=== PATIENT | female | born 1935 | race Caucasian/White ===

== ENCOUNTER 2016-09-26 20:57 | Emergency (ER) | payer OTHER ==
[~2016-09-26] VITALS: Ht 162.6 cm; Wt 63.8 kg
[~2016-09-26 20:57] MED LIST: AMLO-114 PO; ASPEC325 PO; CLB200 PO; CZR50 PO; LRT5 PO; MULT-506 PO; OXYSR10 PO; SIMV20TA2 PO
[2016-09-26 21:06] VITALS: TEMP 36.4; Ht 162.6 cm; Wt 63.8 kg
[2016-09-26] MEDS ORDERED: SODIUM CHLORIDE 0.9% 500ML 500 ML IV STA (22:00)
--- NOTE | 2016-09-26 22:12 | EMERGENCY ROOM VISIT NOTE ---
History Report prepared by Judy: Suma Escobar Under the Supervision of: Dr. Darrell Hall M.D. First contact with patient: 21:51 Chief Complaint: FALL Stated Complaint: FALL, SORE BACK, PT WANTS EVAL. 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 Per , the patient was walking to the bathroom when she had an unwitnessed fall. She does not think that she hit her head or lost consciousness. Her states that he heard a loud noise and found the patient on the ground. She was unable to get up on her own and every time he tried to lift her she would complain of lower back pain. The patient states that her back pain is chronic. 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 The patient was brought to the ED by ambulance. She is confused. Family has expressed concern that she may have Alzheimer's or dementia. Her states that she is good in the mornings, but as the days go on she becomes more confused throughout the day. She has not seen her PCP in 3 years. The patient denies abdominal pain. She does not take any blood thinners. The patient's left leg is swollen. Her states that this is chronic and it is not more swollen than usual. Source of History: patient, spouse/significant other Onset: LIFE SCIENCE RESEARCH ASSISTANT Position: other (global) Timing: other (episode) Modifying Factors (Worsening): movement Modifying Factors (Relieving): ibuprofen Associated Symptoms: + back pain, No LOC, No abdominal pain Review of Systems See HPI for pertinent positives & negatives. A total of 10 systems reviewed and were otherwise negative. Past Medical & Surgical Medical Problems: (1) Localized, primary osteoarthritis of the lower leg Family History Non-pertinent due to advanced age. Social History Smoking Status: Never Smoker Marital Status: Housing Status: lives with significant other Occupation Status: unemployed Current/Historical Medications Scheduled Sulfa/Trimethoprim (Bactrim Ds 800MG/160MG), 1 TAB PO BID Allergies Coded Allergies: Penicillins (Verified Allergy, UNKNOWN, 06/19/11) Physical Exam Vital Signs Date Time Temp Pulse Resp B/P Pulse Ox O2 Delivery O2 Flow Rate FiO2 09/26/16 22:52 97 Room Air 09/26/16 22:52 97 Room Air 09/26/16 22:43 102 18 197/106 97 Room Air 113 182/101 85 124/117 09/26/16 21:11 73 09/26/16 21:06 36.4 65 20 168/78 94 Room Air Physical Exam GENERAL: Patient is a healthy-appearing well-nourished 81 year old female. HEAD: Normocephalic atraumatic EYES: Ocular movements intact pupils equal and react to light OROPHARYNX mucous membranes are moist no exudates present no erythema or edema present NECK: Supple no nuchal rigidity CHEST: Good equal expansion LUNGS: Clear and equal to auscultation CARDIAC: Normal S1 and S2 ABDOMEN: Soft nontender no guarding BACK: She is tender to the L1/L2 area. EXTREMITIES: No pain upon palpation normal muscle strength in all groups no clubbing or cyanosis. Left leg appears significantly more swollen than the right. NEURO: Patient is following commands, not oriented to time. Cranial Nerves 2-12 grossly intact Medical Decision & Procedures ER Provider Diagnostic Interpretation: Radiology results as stated below per my review and radiologist interpretation: CHEST ONE VIEW PORTABLE CLINICAL HISTORY: Pt c/o AMS dyspnea COMPARISON STUDY: 05/20/2011 FINDINGS: Cardiomegaly. Prominent hilar shadows bilaterally. Pulmonary edematous change IMPRESSION: Pulmonary edema. Electronically signed by: [place] M.D. 09/26/2016 10:34 PM Dictated Date/Time: 09/26/2016 10:34 PM VENOUS LEFT LOWER EXTREMITY: No DVT. Cannot exclude superficial venous thrombosis of the lesser saphenous vein, uncertain chronicity. Radiologist: Anastasiia Pearson MD CT HEAD: No intracranial hemorrhage or skull fracture. Extracranial soft tissue swelling. Atrophy with small vessel disease. CT L SPINE: Subtle fracture of the right sacrum. Degenerative changes and levoscoliosis. Old transverse process fracture. Hiatal hernia. Radiologist: Anastasiia Roe MD Laboratory Results 09/26/16 22:23 Red Blood Count 4.23, Mean Corpuscular Volume 95.0, Mean Corpuscular Hemoglobin 31.7, Mean Corpuscular Hemoglobin Concent 33.3, Mean Platelet Volume 11.8, Neutrophils (%) (Auto) 72.8, Lymphocytes (%) (Auto) 16.9, Monocytes (%) (Auto) 7.1, Eosinophils (%) (Auto) 2.3, Basophils (%) (Auto) 0.7, Neutrophils # (Auto) 4.10, Lymphocytes # (Auto) 0.95, Monocytes # (Auto) 0.40, Eosinophils # (Auto) 0.13, Basophils # (Auto) 0.04 09/26/16 22:23 Test 09/26/16 21:43 09/26/16 22:22 09/26/16 22:23 Urine Color YELLOW Urine Appearance CLEAR (CLEAR) Urine pH 6.5 (4.5-7.5) Urine Specific [place] 1.010 (1.000-1.030) Urine Protein NEG (NEG) Urine Glucose (UA) NEG (NEG) Urine Ketones NEG (NEG) Urine Occult Blood NEG (NEG) Urine Nitrite POS (NEG) Urine Bilirubin NEG (NEG) Urine Urobilinogen NEG (NEG) Urine Leukocyte Esterase NEG (NEG) Urine WBC (Auto) 1-5 /hpf (0-5) Urine RBC (Auto) 0-4 /hpf (0-4) Urine Hyaline Casts (Auto) 0 /lpf (0-5) Urine Epithelial Cells (Auto) 20-30 /lpf (0-5) Urine Bacteria (Auto) 4+ (NEG) Bedside Glucose 134 mg/dl (70-90) White Blood Count 5.63 K/uL (4.8-10.8) Red Blood Count 4.23 M/uL (4.2-5.4) Hemoglobin 13.4 g/dL (12.0-16.0) Hematocrit 40.2 % (37-47) Mean Corpuscular Volume 95.0 fL (80-100) Mean Corpuscular Hemoglobin 31.7 pg (25-34) Mean Corpuscular Hemoglobin Concent 33.3 g/dl (32-36) Platelet Count 237 K/uL (130-400) Mean Platelet Volume 11.8 fL (7.4-10.4) Neutrophils (%) (Auto) 72.8 % Lymphocytes (%) (Auto) 16.9 % Monocytes (%) (Auto) 7.1 % Eosinophils (%) (Auto) 2.3 % Basophils (%) (Auto) 0.7 % Neutrophils # (Auto) 4.10 K/uL (1.4-6.5) Lymphocytes # (Auto) 0.95 K/uL (1.2-3.4) Monocytes # (Auto) 0.40 K/uL (0.11-0.59) Eosinophils # (Auto) 0.13 K/uL (0-0.5) Basophils # (Auto) 0.04 K/uL (0-0.2) RDW Standard Deviation 50.7 fL (36.4-46.3) RDW Coefficient of Variation 14.6 % (11.5-14.5) Immature Granulocyte % (Auto) 0.2 % Immature Granulocyte # (Auto) 0.01 K/uL (0.00-0.02) Anion Gap 12.0 mmol/L (3-11) Est Creatinine Clear Calc Drug Dose 59.5 ml/min Estimated GFR () 96.8 Estimated GFR (Non- 83.5 BUN/Creatinine Ratio 24.9 (10-20) Calcium Level 8.6 mg/dl (8.5-10.1) Total Bilirubin 0.4 mg/dl (0.2-1) Direct Bilirubin 0.1 mg/dl (0-0.2) Aspartate Amino Transf (AST/SGOT) 33 U/L (15-37) Alanine Aminotransferase (ALT/SGPT) 19 U/L (12-78) Alkaline Phosphatase 97 U/L (45-117) Total Creatine Kinase 114 U/L (26-192) Creatine Kinase MB 3.4 ng/ml (0.5-3.6) Creatine Kinase MB Ratio 3.0 (0-3.0) Troponin I 0.021 ng/ml (0-0.045) Total Protein 7.4 gm/dl (6.4-8.2) Albumin 3.7 gm/dl (3.4-5.0) Thyroid Stimulating Hormone (TSH) 1.580 uIu/ml (0.300-4.500) Labs reviewed by ED physician. Medications Administered Medications (Trade) Dose Ordered Sig/Blayne Route Start Time Stop Time Status Last Admin Dose Admin Sodium Chloride (Nss 500ml) 500 ml @ 999 mls/hr Q31M STAT IV 09/26/16 22:00 09/26/16 22:30 DC 09/26/16 22:53 999 MLS/HR Ceftriaxone Sodium (Rocephin Inj) 1 gm NOW STAT IV 09/27/16 00:12 09/27/16 00:13 DC 09/27/16 00:17 1 GM ECG Indication: other Rate (beats per minute): 70 Rhythm: normal sinus Findings: no acute ischemic change, no ectopy ED Course 2150: Past medical records reviewed. The patient was evaluated in room C6. A complete history and physical examination was performed. 2200: NSS 500 ml @ 999 mls/hr IV 0012: Rocephin 1 gm IV 0013: I reassessed the patient at this time. She is resting comfortably. I discussed the results and treatment plan with the patient and her . I answered all pertaining questions that they had. They expressed understanding and verbalized agreement. I offered the patient admission to the hospital but she is refusing. She does not wish to remain in the hospital and wants to go home. I discussed the risks and benefits associated with leaving. The patient will be discharged home. Medical Decision Differential diagnosis: Etiologies such as metabolic, infection, hypo/hyperglycemia, electrolyte abnormalities, cardiac sources, intracerebral event, toxicologic, neurologic, as well as others were entertained. This is an 81-year-old female who presents emergency department complaining of back pain after a fall at home. In addition the patient's daughter also like the patient placed. The patient arrives here in emergency department with her . She agreed to sit for a physical exam as well as laboratory and imaging studies. Her CAT scan is concerning for sacral fracture however the patient has no pain or tenderness at this point. She was also ambulated by nursing staff in the emergency department and did not appear to have any issues. In addition the patient also appears to have urinary tract infection. For this reason the patient was given normal saline bolus and started on Rocephin and will be placed on Bactrim. I strongly recommended to the patient and her that she be admitted to the hospital however the patient is adamantly refusing and is actively trying to walk out of the room as well as emergency department on exam. In addition the patient's also will not allow her to stay. Case management has been in contact with this patient's daughter over placement for the patient. Unfortunately I cannot force the patient to stay and be placed. The patient has demonstrated no significant defect in the decision-making capacity to make choices. The encounter had a good level of communication with language the patient can easily understand. I feel trust was present and conveyed that our action/intentions were the best interest of the patient. The patient was given all relevant information and reiterated the explained risks and benefits. The patient explained the reasoning for refusing treatment clearly. The patient possesses and expresses a set of values and goals, the ability to communicate and understand, and an ability to reason and deliberate. Despite acting emphatically, attentively and with the utmost patient's the patient declined further treatment. I offered options, negotiated, and explored every reasonable choice. I must respect the patient's autonomy and that they feel that their choices are best for them despite the associated risks of leaving without completing the evaluation. The patient was informed about the findings as listed above. All questions were answered and he was pleased with the treatment. Return instructions were outlined and the patient was discharged in stable condition. Impression Primary Impression: UTI (urinary tract infection) Additional Impression: Fall Scribe Attestation The scribe's documentation has been prepared under my direction and personally reviewed by me in its entirety. I confirm that the note above accurately reflects all work, treatment, procedures, and medical decision making performed by me. Departure Information Dispostion Home / Self-Care Prescriptions Sulfa/Trimethoprim (Bactrim Ds 800MG/160MG) Tab 1 TAB PO BID for 7 Days, #14 TAB Prov: Darrell Hall MD 09/27/16 Referrals No Doctor, Eldon Schultz M.D. Forms HOME CARE DOCUMENTATION FORM, IMPORTANT VISIT INFORMATION Patient Instructions ED Fall Dizziness Weakn Balance, ED UTI Cystitis Female, [facility] Additional Instructions Culture results are usually available in approx 48 hours You have been examined and treated today on an emergency basis only. This is not a substitute for, or an effort to provide, complete comprehensive medical care. It is impossible to recognize and treat all injuries or illnesses in a single emergency department visit. It is therefore important that you follow up closely with Dr Thurston. Call as soon as possible for an appointment. Thank you for your time and consideration. I look forward to speaking with you again soon. Please don't hesitate to call us if you have any questions. Problem Qualifiers Primary Impression: UTI (urinary tract infection) Urinary tract infection type: acute cystitis Hematuria presence: with hematuria Qualified Codes: N30.01 - Acute cystitis with hematuria Additional Impression: Fall Encounter type: initial encounter Qualified Codes: W19.XXXA - Unspecified fall, initial encounter
--- NOTE | 2016-09-26 22:35 | DIAGNOSTIC IMAGING REPORT ---
CHEST ONE VIEW PORTABLE CLINICAL HISTORY: Pt c/o AMS dyspnea COMPARISON STUDY: 05/20/2011 FINDINGS: Cardiomegaly. Prominent hilar shadows bilaterally. Pulmonary edematous change IMPRESSION: Pulmonary edema. Electronically signed by: [place] M.D. 09/26/2016 10:34 PM Dictated Date/Time: 09/26/2016 10:34 PM
[2016-09-26 22:52] VITALS: O2SAT 97
[2016-09-26 22:57] LABS: BASO % 0.7 %; BASO ABS # 0.04 K/uL (0-0.2); COMPLETE YES; EOS % 2.3 %; HEMATOCRIT 40.2 % (37-47); IG% 0.2 %; LYMPH % 16.9 %; LYMPH ABS # 0.95 K/uL (1.2-3.4); MEAN CORPUSCULAR HEMOGLOBIN 31.7 pg (25-34); MEAN CORPUSCULAR HGB CONC 33.3 g/dl (32-36); MEAN PLATELET VOLUME 11.8 fL (7.4-10.4); MONO % 7.1 %; NEUT % 72.8 %; PLATELET COUNT 237 K/uL (130-400); RED BLOOD COUNT 4.23 M/uL (4.2-5.4); WHITE BLOOD COUNT 5.63 K/uL (4.8-10.8)
[2016-09-26 23:00] LABS: BUN/CREATININE RATIO 24.9 (10-20); CALCIUM 8.6 mg/dl (8.5-10.1); CREATININE 0.63 mg/dl (0.60-1.20); POTASSIUM 4.1 mmol/L (3.5-5.1)
[2016-09-26 23:11] LABS: THYROID STIMULATING HORMONE 1.58 uIu/ml (0.300-4.500)
[2016-09-26 23:58] LABS: URINE APPEARANCE CLEAR (CLEAR); URINE BILIRUBIN NEG (NEG); URINE COLOR YELLOW; URINE EPITHELIAL CELL AUTO 20-30 /lpf (0-5); URINE NITRITE POS (NEG); URINE PH 6.5 (4.5-7.5); UROBILINOGEN NEG (NEG)
[2016-09-27 00:11] LABS: MANUAL MICROSCOPIC REQUIRED? NO; REVIEW REQ? NO
[2016-09-27] MEDS ORDERED: CEFTRIAXONE SOD INJ 1 GM ADDVIAL IV STA (00:12)
[2016-09-27] MEDS ORDERED: SULF800T23 PO (00:17)
[2016-09-27 00:43] VITALS: BP 180/96; PULSE 61; O2SAT 95
--- NOTE | 2016-09-27 07:09 | DIAGNOSTIC IMAGING REPORT ---
CT LUMBAR SPINE WITHOUT CT DOSE: 1041.17 mGy.cm CLINICAL HISTORY: Low back pain status post trauma TECHNIQUE: Helical images were acquired in transverse plane. Reformatted sagittal and coronal images were reviewed. CONTRAST: No contrast was administered COMPARISON STUDY: None. FINDINGS: L1-2 level: There is gas within the disc. No focal herniations are visualized. L2-3 level: There is L2-3 fusion. No fractures are visualized. No herniations are evident. There is minimal triangular spinal canal narrowing L3-4 level: There is a circumferential disc bulge. There is mild to moderate spinal canal narrowing. L4-5 level: There is a circumferential disc bulge. There is minimal spinal canal narrowing. L5-S1 level: There is no evidence of significant disc bulge or focal herniation. There is no evidence of spinal or foraminal stenosis. There is a moderate levoscoliosis. No acute lumbar fractures or traumatic subluxations are visualized. There is equivocal nondisplaced right sacral fracture. IMPRESSION: Scoliosis and multilevel degenerative change. No lumbar vertebral body fractures or traumatic subluxations are visualized. There is an equivocal nondisplaced right sacral fracture. Electronically signed by: Gerardo Echeverria M.D. 09/27/2016 7:07 AM Dictated Date/Time: 09/27/2016 6:57 AM
--- NOTE | 2016-09-27 07:18 | DIAGNOSTIC IMAGING REPORT ---
HEAD CT NONCONTRAST CT DOSE: 614.27 mGy.cm HISTORY: Altered mental status. TECHNIQUE: Multiaxial CT images of the head were performed without the use of intravenous contrast. Automated exposure control was utilized for this study. Comparison: None. Findings: The paranasal sinuses and mastoid air cells are clear. The calvarium and skull base are intact. There is no mass, hematoma, midline shift, acute infarct. White matter hypodensity is nonspecific but suggestive of microvascular ischemic change. The ventricles and sulci demonstrate mild age-related involutional changes. Right scalp swelling. Impression: No acute intracranial abnormality. Atrophy and microvascular ischemic changes. Right-sided scalp swelling. Electronically signed by: Shekhar Sesay M.D. 09/27/2016 7:17 AM Dictated Date/Time: 09/27/2016 7:15 AM
--- NOTE | 2016-09-27 07:22 | DIAGNOSTIC IMAGING REPORT ---
LEFT LOWER EXTREMITY VENOUS DOPPLER HISTORY: Left leg swelling. COMPARISON STUDY: None. FINDINGS: There is normal compressibility, flow, and augmentation within the left lower extremity deep venous system. There is thrombus within the lesser saphenous vein within the proximal left calf/popliteal fossa. IMPRESSION: No DVT within the left lower extremity. Thrombus within the lesser saphenous vein which may be chronic. Electronically signed by: Shekhar Sesay M.D. 09/27/2016 7:21 AM Dictated Date/Time: 09/27/2016 7:20 AM
== END 2016-09-27 00:43 | disposition home or self-care (01) ==
LOC: EDBD 20:57 → C.EDC 20:57
DX: N39.0 Urinary tract infection, site not specified (principal); W19.XXXA Unspecified fall, initial encounter; G89.29 Other chronic pain; M54.5 Low back pain

== ENCOUNTER 2016-10-26 20:35 | Emergency (ER) | payer OTHER ==
[~2016-10-26] VITALS: Ht 160 cm; Wt 65.6 kg
[2016-10-26 20:45] VITALS: TEMP 36.4; Ht 160 cm; Wt 65.6 kg
[2016-10-26] MEDS ORDERED: SODIUM CHLORIDE 0.9% 1000ML 1,000 ML IV STA (21:48)
[2016-10-26] MEDS ORDERED: LORAZEPAM 2 MG/ML 1 ML VIAL IV STA (21:48)
[2016-10-26] MEDS ORDERED: HALOPERIDOL LACTATE 5 MG/ML 1 ML VIAL IV STA (21:55)
--- NOTE | 2016-10-26 21:57 | EMERGENCY ROOM VISIT NOTE ---
History Report prepared by Judy: Suma Escobar Under the Supervision of: Dr. Estela Melendez M.D. First contact with patient: 21:14 Chief Complaint: ALTERED MENTAL STATUS Stated Complaint: altered mental status, Nursing Triage Summary: called EMS because when he got home from dinner, patient was found laying on ground. Pt doesn't remember falling. reports patient hit head and is not acting herself. Pt alert and oriented to person, place, and time. Pt denies pain anywhere. Pt repetitive. Pt reports "I am just upset because my dog is having heart surgery today." Pt has hard time answering questions. NIH 0 reports patient drank 1/2 glass of wine which is normal. 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 The patient's returned home from dinner this evening and found the patient laying on the ground. The patient does not remember falling. She denies any injury and she denies any pain at this time. Per daughter, the patient has been confused for a long time and they are trying to move her closer to them to move her into an assisted living home. She states that this evening the patient drank all of the white wine and was getting the red wine when her came home from dinner. Her states that they typically have 1 glass of wine at dinner. The patient states that she had 1 small glass of wine tonight. Her called EMS because she has not been acting like herself. The patient thinks that her dog is having heart surgery today, but her states this is not true and the dog is not getting surgery. She was brought to the ED by ambulance. The history is limited secondary to AMS. states that the patient has not been to a doctor in 3 years. Source of History: patient, family, spouse/significant other, nursing staff History Limited By: AMS Onset: CHEMICAL PACKAGER Position: other (global) Quality: other (AMS) Timing: constant Note: Pt denies any injury or pain. Review of Systems See HPI for pertinent positives & negatives. A total of 10 systems reviewed and were otherwise negative. Past Medical & Surgical Medical Problems: (1) Localized, primary osteoarthritis of the lower leg (2) UTI (urinary tract infection) Family History Non-pertinent due to advanced age. Social History Smoking Status: Never Smoker Marital Status: Housing Status: lives with significant other Occupation Status: unemployed Current/Historical Medications Scheduled Aspirin (Aspirin Ec), 325 MG PO QAM Atenolol (Tenormin), 25 MG PO DAILY Allergies Coded Allergies: Penicillins (Verified Allergy, Unknown, UNKNOWN, 10/26/16) Physical Exam Vital Signs Date Time Temp Pulse Resp B/P Pulse Ox O2 Delivery O2 Flow Rate FiO2 10/27/16 02:15 99 20 193/113 99 Room Air 10/27/16 01:43 85 163/78 10/27/16 01:39 94 170/89 10/27/16 01:30 102 199/130 10/27/16 01:23 102 214/124 10/27/16 00:54 102 23 216/118 92 Room Air 10/27/16 00:23 103 18 203/112 90 Room Air 10/26/16 23:39 100 10/26/16 23:33 99 10/26/16 23:20 94 16 194/102 92 10/26/16 22:30 97 18 161/82 95 Room Air 10/26/16 20:57 88 10/26/16 20:45 36.4 87 20 172/110 94 Room Air Physical Exam Vital signs reviewed. General: Elderly disheveled-appearing 81 year old female, in no significant distress, smells of alcohol. HEENT: No scleral icterus, PERRLA, neck supple. Dried blood to the lips. Atraumatic. Cardiovascular: Regular rate and rhythm, systolic ejection murmur. Pulmonary: Clear to auscultation bilaterally, normal work of breathing. Abdomen: Soft, nontender, nondistended, positive bowel sounds. Musculoskeletal: Atraumatic, no peripheral edema. Nontender to palpation of the cervical, thoracic, and lumbar spine. Marked scoliosis. Neurologic: Patient awake alert and oriented x 3, full strength in all 4 extremities. Cranial nerves 2 through 12 grossly intact. Skin: Warm, dry, no rash. She has a skin abrasion to the left elbow. Medical Decision & Procedures ER Provider Diagnostic Interpretation: Radiology results as stated below per my review and radiologist interpretation: HEAD CT NONCONTRAST CT DOSE: HISTORY: Trauma AMS, ETOH, FALL TECHNIQUE: Multiaxial CT images of the head were performed without the use of intravenous contrast. Comparison: 09/26/2016 Findings: The paranasal sinuses and mastoid air cells are clear. The calvarium and skull base are intact. The ventricles and sulci are within normal limits. There is no mass, hematoma, midline shift, or acute infarct. Atrophy. Generalized chronic small vessel change. No acute hemorrhage Impression: Age-related change. Atrophy. No acute process. Electronically signed by: [place] M.D. 10/26/2016 11:02 PM Dictated Date/Time: 10/26/2016 11:01 PM CHEST ONE VIEW PORTABLE CLINICAL HISTORY: ETOH, FALL, AMS COMPARISON STUDY: 09/26/2016 FINDINGS: Moderate cardiomegaly. Prominence of the pulmonary vasculature. Mild left basilar atelectasis. IMPRESSION: Moderate cardiomegaly with mild components of congestive failure. Left basilar atelectasis. Electronically signed by: [place] M.D. 10/26/2016 10:20 PM Dictated Date/Time: 10/26/2016 10:[address] DOSE: 1729.40 mGy.cm HISTORY: Trauma. Pain. ETOH, FALL, AMS TECHNIQUE: Multiaxial CT images of the cervical spine were performed and reformatted in the sagittal and coronal plane without the use of contrast. COMPARISON: None. FINDINGS: No fractures. No subluxation. Prevertebral soft tissues and the C1-C2 interval are intact. No pneumothorax. Moderate degenerative disc change. IMPRESSION: Moderate degenerative change. No acute process. Electronically signed by: [place] M.D. 10/26/2016 11:03 PM Dictated Date/Time: 10/26/2016 11:02 PM US VENOUS BILATERAL LOWER EXTREMITIES: There is limited evaluation of the calf vessels due to bilateral subcutaneous edema. No evidence of DVT in the bilateral lower extremity veins. Radiologist: Jimbo Vick MD Laboratory Results 10/26/16 20:18 Red Blood Count 4.28, Mean Corpuscular Volume 98.4, Mean Corpuscular Hemoglobin 32.2, Mean Corpuscular Hemoglobin Concent 32.8, Mean Platelet Volume 11.9, Neutrophils (%) (Auto) 58.7, Lymphocytes (%) (Auto) 27.7, Monocytes (%) (Auto) 8.3, Eosinophils (%) (Auto) 4.3, Basophils (%) (Auto) 0.6, Neutrophils # (Auto) 2.90, Lymphocytes # (Auto) 1.37, Monocytes # (Auto) 0.41, Eosinophils # (Auto) 0.21, Basophils # (Auto) 0.03 10/26/16 20:18 Test 10/26/16 20:18 10/26/16 20:44 10/26/16 21:15 10/26/16 22:17 White Blood Count 4.94 K/uL (4.8-10.8) Red Blood Count 4.28 M/uL (4.2-5.4) Hemoglobin 13.8 g/dL (12.0-16.0) Hematocrit 42.1 % (37-47) Mean Corpuscular Volume 98.4 fL (80-100) Mean Corpuscular Hemoglobin 32.2 pg (25-34) Mean Corpuscular Hemoglobin Concent 32.8 g/dl (32-36) Platelet Count 233 K/uL (130-400) Mean Platelet Volume 11.9 fL (7.4-10.4) Neutrophils (%) (Auto) 58.7 % Lymphocytes (%) (Auto) 27.7 % Monocytes (%) (Auto) 8.3 % Eosinophils (%) (Auto) 4.3 % Basophils (%) (Auto) 0.6 % Neutrophils # (Auto) 2.90 K/uL (1.4-6.5) Lymphocytes # (Auto) 1.37 K/uL (1.2-3.4) Monocytes # (Auto) 0.41 K/uL (0.11-0.59) Eosinophils # (Auto) 0.21 K/uL (0-0.5) Basophils # (Auto) 0.03 K/uL (0-0.2) RDW Standard Deviation 49.4 fL (36.4-46.3) RDW Coefficient of Variation 13.8 % (11.5-14.5) Immature Granulocyte % (Auto) 0.4 % Immature Granulocyte # (Auto) 0.02 K/uL (0.00-0.02) Prothrombin Time 10.3 SECONDS (9.0-12.0) Prothromb Time International Ratio 1.0 (0.9-1.1) Activated Partial Thromboplast Time 31.2 SECONDS (21.0-31.0) Partial Thromboplastin Ratio 1.2 Anion Gap 8.0 mmol/L (3-11) Est Creatinine Clear Calc Drug Dose 52.0 ml/min Estimated GFR () 84.7 Estimated GFR (Non- 73.1 BUN/Creatinine Ratio 17.2 (10-20) Calcium Level 8.6 mg/dl (8.5-10.1) Magnesium Level 2.2 mg/dl (1.8-2.4) Total Bilirubin 0.4 mg/dl (0.2-1) Direct Bilirubin < 0.1 mg/dl (0-0.2) Aspartate Amino Transf (AST/SGOT) 22 U/L (15-37) Alanine Aminotransferase (ALT/SGPT) 15 U/L (12-78) Alkaline Phosphatase 84 U/L (45-117) Total Creatine Kinase 93 U/L (26-192) Creatine Kinase MB 3.2 ng/ml (0.5-3.6) Creatine Kinase MB Ratio 3.4 (0-3.0) Total Protein 7.2 gm/dl (6.4-8.2) Albumin 3.8 gm/dl (3.4-5.0) Thyroid Stimulating Hormone (TSH) 1.400 uIu/ml (0.300-4.500) Salicylates Level < 1.7 mg/dl (2.8-20) Acetaminophen Level < 2 ug/ml (10-30) Bedside Glucose 135 mg/dl (70-90) Urine Color YELLOW Urine Appearance CLEAR (CLEAR) Urine pH 7.0 (4.5-7.5) Urine Specific [place] 1.016 (1.000-1.030) Urine Protein NEG (NEG) Urine Glucose (UA) TRACE (NEG) Urine Ketones NEG (NEG) Urine Occult Blood TRACE (NEG) Urine Nitrite NEG (NEG) Urine Bilirubin NEG (NEG) Urine Urobilinogen NEG (NEG) Urine Leukocyte Esterase NEG (NEG) Urine RBC 0-4 /hpf (0-4) Urine WBC 1-5 /hpf (0-5) Urine Epithelial Cells >30 /lpf (0-5) Urine Bacteria NEG (NEG) Urine Opiates Screen NEG (NEG) Urine Methadone, Qualitative NEG (NEG) Urine Barbiturates NEG (NEG) Urine Phencyclidine (PCP) Level NEG (NEG) Ur Amphetamine/Methamphetamine NEG (NEG) MDMA (Ecstasy) Screen NEG (NEG) Urine Benzodiazepines Screen NEG (NEG) Urine Cocaine Metabolite NEG (NEG) Urine Marijuana (THC) NEG (NEG) Bedside Troponin I 0.000 ng/ml (0-0.045) Test 10/26/16 22:18 Ethyl Alcohol mg/dL 113.0 mg/dl (0-3) Laboratory results per my review. Medications Administered Medications (Trade) Dose Ordered Sig/Blayne Route Start Time Stop Time Status Last Admin Dose Admin Sodium Chloride (Nss 1000ml) 1,000 ml @ 125 mls/hr Q8H STAT IV 10/26/16 21:48 10/27/16 02:50 DC 10/26/16 21:48 125 MLS/HR Haloperidol Lactate (Haldol Inj) 2.5 mg NOW STAT IV 10/26/16 21:55 10/26/16 21:56 DC 10/26/16 22:10 2.5 MG Lorazepam (Ativan Inj) 1 mg NOW STAT IV 10/27/16 00:57 10/27/16 00:58 DC 10/27/16 01:13 1 MG Atenolol (Tenormin Tab) 25 mg NOW STAT PO 10/27/16 01:30 10/27/16 01:31 DC 10/27/16 02:11 25 MG ECG Indication: altered mental status Rate (beats per minute): 95 Rhythm: normal sinus Findings: no ectopy, other (LVH, repolarization abnormality, QTC 477) ED Course 2139: Past medical records reviewed. The patient was evaluated in room B7. A complete history and physical examination was performed. 8: Ativan 1 mg IV, NSS 1000 ml @ 125 mls/hr IV 2155: Haldol 2.5 mg IV 2349: I reassessed the patient at this time. 0031: I reassessed the patient at this time. She is resting comfortably. I discussed the results and treatment plan with the patient and her . I answered all pertaining questions that they had. They expressed understanding and verbalized agreement. The patient will be discharged home. 0055: The patient's blood pressure is still elevated. 0057: Lorazepam 1 mg IV 0138: The patient is feeling better at this time and will be discharged home. Medical Decision Differential diagnosis: Etiologies such as metabolic, infection, hypoglycemia, electrolyte abnormalities , cardiac sources, intracerebral event, toxicologic, neurologic, as well as others were entertained. This patient was evaluated and appeared to be in no significant distress. Patient is agitated and yelling. She has a cervical collar in place however is sitting up in the bed and attempting to climb out. She is brought reprimanding her because she is here. CT scan of the head was performed and reveals a generalized atrophy however there is no evidence of acute intracranial hemorrhage or mass. Patient's laboratory work is significant for alcohol intoxication with a blood alcohol of 113. The patient did have several triplets of PVCs. She has frequent ectopy. The patient is noted to be tachycardic and hypertensive. I suspect the patient may be alcohol dependent based on conversation with her . It seems that he drinks daily as well. The patient was given 1 mg of Ativan with normalization of her vital signs. The patient was not accepting of the possibility of alcohol dependency. I did express my concerns to the patient and her regarding her frequent PVCs, falls and alcohol dependency. She and her are aware of the risks and refuses admission at this time. She was discharged with a prescription for atenolol 25 mg daily for the hypertension and frequent PVCs. She was strongly advised to avoid alcohol. They'll follow-up with PCP this week and return to the ER for worsening of symptoms or any medical concerns. Impression Primary Impression: Behavior disturbance Additional Impressions: Alcohol intoxication Memory changes Scribe Attestation The scribe's documentation has been prepared under my direction and personally reviewed by me in its entirety. I confirm that the note above accurately reflects all work, treatment, procedures, and medical decision making performed by me. Departure Information Dispostion Home / Self-Care Prescriptions Atenolol (Tenormin) 25 Mg Tab 25 MG PO DAILY, #30 TAB Prov: Estela Melendez M.D. 10/27/16 Referrals No Doctor, Assigned (PCP) Forms HOME CARE DOCUMENTATION FORM, IMPORTANT VISIT INFORMATION Patient Instructions My [facility] Additional Instructions Diagnosis: Behavior disturbance, alcohol intoxication, memory changes Please encourage frequent and small meals. Drink plenty of fluids. Avoid alcohol. Follow-up with your physician as soon as possible. Return to the ER for worsening of symptoms or any medical concerns. Problem Qualifiers Additional Impressions: Alcohol intoxication Complication of substance-induced condition: with delirium Qualified Codes: F10.121 - Alcohol abuse with intoxication delirium
[2016-10-26 22:00] LABS: BASO % 0.6 %; BASO ABS # 0.03 K/uL (0-0.2); COMPLETE YES; EOS % 4.3 %; HEMATOCRIT 42.1 % (37-47); IG% 0.4 %; LYMPH % 27.7 %; LYMPH ABS # 1.37 K/uL (1.2-3.4); MEAN CELL VOLUME 98.4 fL (80-100); MEAN CORPUSCULAR HEMOGLOBIN 32.2 pg (25-34); MEAN CORPUSCULAR HGB CONC 32.8 g/dl (32-36); MEAN PLATELET VOLUME 11.9 fL (7.4-10.4); MONO % 8.3 %; NEUT % 58.7 %; PLATELET COUNT 233 K/uL (130-400); RED BLOOD COUNT 4.28 M/uL (4.2-5.4); WHITE BLOOD COUNT 4.94 K/uL (4.8-10.8)
[2016-10-26 22:06] LABS: URINE APPEARANCE CLEAR (CLEAR); URINE BILIRUBIN NEG (NEG); URINE COLOR YELLOW; URINE NITRITE NEG (NEG); URINE SPECIFIC GRAVITY 1.016 (1.000-1.030); UROBILINOGEN NEG (NEG)
[2016-10-26 22:07] LABS: MANUAL MICROSCOPIC REQUIRED? YES; REVIEW REQ? NO
[2016-10-26 22:11] LABS: PARTIAL THROMBOPLASTIN RATIO 1.2; PROTHROMBIN TIME (PATIENT) 10.3 SECONDS (9.0-12.0)
[2016-10-26 22:14] LABS: ALT/SGPT 15 U/L (12-78); AST/SGOT 22 U/L (15-37); BLOOD UREA NITROGEN 13 mg/dl (7-18); BUN/CREATININE RATIO 17.2 (10-20); CALCIUM 8.6 mg/dl (8.5-10.1); CARBON DIOXIDE 31 mmol/L (21-32); CHLORIDE 107 mmol/L (98-107); CREATININE 0.76 mg/dl (0.60-1.20); GLUCOSE 119 mg/dl (70-99); MAGNESIUM 2.2 mg/dl (1.8-2.4); POTASSIUM 3.4 mmol/L (3.5-5.1); SODIUM 146 mmol/L (136-145)
[2016-10-26 22:15] LABS: URINE BACTERIA NEG (NEG); URINE RBC 0-4 /hpf (0-4)
[2016-10-26 22:16] LABS: ZZUR CULT IF INDIC CLEAN CATCH NO
[2016-10-26 22:20] LABS: ACETAMINOPHEN < 2 ug/ml (10-30)
--- NOTE | 2016-10-26 22:21 | DIAGNOSTIC IMAGING REPORT ---
CHEST ONE VIEW PORTABLE CLINICAL HISTORY: ETOH, FALL, AMS COMPARISON STUDY: 09/26/2016 FINDINGS: Moderate cardiomegaly. Prominence of the pulmonary vasculature. Mild left basilar atelectasis. IMPRESSION: Moderate cardiomegaly with mild components of congestive failure. Left basilar atelectasis. Electronically signed by: [place] M.D. 10/26/2016 10:20 PM Dictated Date/Time: 10/26/2016 10:19 PM
[2016-10-26 22:24] LABS: ALKALINE PHOSPHATASE 84 U/L (45-117); CKMB/CK RATIO 3.4 (0-3.0)
[2016-10-26 22:29] LABS: BENZODIAZEPINE, URINE NEG (NEG); COCAINE,URINE NEG (NEG); PHENCYCLIDINE, URINE NEG (NEG)
--- NOTE | 2016-10-26 23:03 | DIAGNOSTIC IMAGING REPORT ---
HEAD CT NONCONTRAST CT DOSE: HISTORY: Trauma AMS, ETOH, FALL TECHNIQUE: Multiaxial CT images of the head were performed without the use of intravenous contrast. Comparison: 09/26/2016 Findings: The paranasal sinuses and mastoid air cells are clear. The calvarium and skull base are intact. The ventricles and sulci are within normal limits. There is no mass, hematoma, midline shift, or acute infarct. Atrophy. Generalized chronic small vessel change. No acute hemorrhage Impression: Age-related change. Atrophy. No acute process. Electronically signed by: [place] M.D. 10/26/2016 11:02 PM Dictated Date/Time: 10/26/2016 11:01 PM
--- NOTE | 2016-10-26 23:05 | DIAGNOSTIC IMAGING REPORT ---
CERVICAL SPINE CT CT DOSE: 1729.40 mGy.cm HISTORY: Trauma. Pain. ETOH, FALL, AMS TECHNIQUE: Multiaxial CT images of the cervical spine were performed and reformatted in the sagittal and coronal plane without the use of contrast. COMPARISON: None. FINDINGS: No fractures. No subluxation. Prevertebral soft tissues and the C1-C2 interval are intact. No pneumothorax. Moderate degenerative disc change. IMPRESSION: Moderate degenerative change. No acute process. Electronically signed by: [place] M.D. 10/26/2016 11:03 PM Dictated Date/Time: 10/26/2016 11:02 PM
[2016-10-27] MEDS ORDERED: LORAZEPAM 2 MG/ML 1 ML VIAL IV STA (00:57)
[2016-10-27] MEDS ORDERED: ATEN-173 PO (01:33)
[2016-10-27 02:15] VITALS: BP 193/113; PULSE 99; O2SAT 99
--- NOTE | 2016-10-27 07:12 | DIAGNOSTIC IMAGING REPORT ---
BILATERAL LOWER EXTREMITY VENOUS DOPPLER HISTORY: BLE swelling COMPARISON STUDY: None. FINDINGS: There is normal compressibility, flow, and augmentation within the bilateral lower extremity deep venous systems. Suboptimal evaluation of the calf vessels due to the subcutaneous edema. IMPRESSION: No DVT within the right or left lower extremity. Electronically signed by: Shekhar Sesay M.D. 10/27/2016 7:11 AM Dictated Date/Time: 10/27/2016 7:10 AM
== END 2016-10-27 02:15 | disposition home or self-care (01) ==
LOC: EDBD 20:35 → C.EDB 20:38
DX: F10.121 Alcohol abuse with intoxication delirium (principal); Y90.5 Blood alcohol level of 100-119 mg/100 ml; Z87.440 Personal history of urinary (tract) infections; Z79.82 Long term (current) use of aspirin; Z79.899 Other long term (current) drug therapy; F91.9 Conduct disorder, unspecified

== ENCOUNTER 2016-11-27 21:06 | Emergency (ER) | payer OTHER ==
[~2016-11-27] VITALS: Ht 157.5 cm; Wt 63.0 kg
[~2016-11-27 21:06] MED LIST changes: -AMLO-114 PO; -ASPEC325 PO; +ATEN-173 PO; -CLB200 PO; -CZR50 PO; -LRT5 PO; -MULT-506 PO; -OXYSR10 PO; -SIMV20TA2 PO
[2016-11-27] MEDS ORDERED: ASPI325T39 PO (21:17)
[2016-11-27 21:21] VITALS: TEMP 36.8; Ht 157.5 cm; Wt 63.0 kg
[2016-11-27] MEDS ORDERED: SODIUM CHLORIDE 0.9% 500ML 500 ML IV STA (21:56)
[2016-11-27 21:57] VITALS: O2SAT 94
[2016-11-27 22:03] LABS: HEMATOCRIT 41.4 % (37-47); MEAN CELL VOLUME 96.7 fL (80-100); MEAN CORPUSCULAR HEMOGLOBIN 31.1 pg (25-34); MEAN CORPUSCULAR HGB CONC 32.1 g/dl (32-36); PLATELET COUNT 252 K/uL (130-400); RED BLOOD COUNT 4.28 M/uL (4.2-5.4); WHITE BLOOD COUNT 5.19 K/uL (4.8-10.8)
[2016-11-27 22:07] LABS: BUN/CREATININE RATIO 16.1 (10-20); CREATININE 0.84 mg/dl (0.60-1.20); PARTIAL THROMBOPLASTIN RATIO 1.3; POTASSIUM 3.5 mmol/L (3.5-5.1); PROTHROMBIN TIME (PATIENT) 10.7 SECONDS (9.0-12.0)
[2016-11-27 22:11] LABS: ALB/GLOB RATIO 1.1 (0.9-2); CKMB/CK RATIO 3.6 (0-3.0)
[2016-11-27 22:17] LABS: CALCIUM 9.2 mg/dl (8.5-10.1)
--- NOTE | 2016-11-27 22:19 | DIAGNOSTIC IMAGING REPORT ---
CHEST ONE VIEW PORTABLE CLINICAL HISTORY: cp dyspnea COMPARISON STUDY: 10/26/2016 FINDINGS: Mild cardiomegaly. Lungs are clear. Diaphragms smooth. IMPRESSION: Mild cardiomegaly. Electronically signed by: [place] M.D. 11/27/2016 10:17 PM Dictated Date/Time: 11/27/2016 10:17 PM
[2016-11-27] MEDS ORDERED: APIX1TAB PO (22:37)
[2016-11-27] MEDS ORDERED: ATEN-173 PO (22:37)
--- NOTE | 2016-11-27 22:52 | DIAGNOSTIC IMAGING REPORT ---
Venous Doppler left leg LEFT VENOUS DOPP LOWER EXT UNILAT CLINICAL HISTORY: r/o dv pain. Edema. TECHNIQUE: Venous Doppler COMPARISON STUDY: 10/26/2016 FINDINGS: Normal study IMPRESSION: Normal study Electronically signed by: [place] M.D. 11/27/2016 10:51 PM Dictated Date/Time: 11/27/2016 10:50 PM
--- NOTE | 2016-11-27 23:30 | EMERGENCY ROOM VISIT NOTE ---
History Report prepared by Judy: Huy Tran Under the Supervision of: Dr. Darrell Cruz D.O. First contact with patient: 21:26 Chief Complaint: CHEST PAIN Stated Complaint: CHEST PAIN, SOB Nursing Triage Summary: Patient arrived via EMS. Patient has history of dementia and alzheimers and is a poor historian. EMS reports patient was at home and reported to her daughter that she was having left non-radiation chest pain and sob. Patient currently denies any chest pain and denies chest pain earlier Patient currently diagnosed with a uti. Patient has edema to left leg with warmth and redness and is tender to touch. History of Present Illness The patient is an 81 year old female with a history of dementia who presents to the Emergency Room via EMS with complaints of resolved chest pain beginning several hours prior to arrival. As per daughter, the patient stated she was experiencing chest pain, shortness of breath, and lower back pain that has been intermittently occurring for the past few weeks. The patient denies experiencing these symptoms today. She notes the patient was diagnosed with a UTI in September, but she did not take her medication. The patient states her breathing feels a little tight, because being in the ED is making her feel anxious. The daughter also complains of the patient experiencing worsening left leg edema. The patient notes this is chronic for her. She denies any medical concerns at this time. The daughter is concerned for possible Lyme Disease and the patient's decreased PO intake. She states her ultimate goal is to get the patient into a residential in [place] where she lives. 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 Review of Systems See HPI for pertinent positives & negatives. A total of 10 systems reviewed and were otherwise negative. Past Medical & Surgical Medical Problems: (1) Localized, primary osteoarthritis of the lower leg (2) UTI (urinary tract infection) Family History Patient reports no known family medical history. Social History Smoking Status: Never Smoker Marital Status: Housing Status: lives with significant other Occupation Status: unemployed Current/Historical Medications Scheduled Apixaban (Eliquis), 2.5 MG PO BID Aspirin (Aspirin Ec), 325 MG PO QAM Atenolol (Tenormin), 25 MG PO DAILY Allergies Coded Allergies: Penicillins (Verified Allergy, Unknown, UNKNOWN, 10/26/16) Physical Exam Vital Signs Date Time Temp Pulse Resp B/P Pulse Ox O2 Delivery O2 Flow Rate FiO2 11/27/16 23:00 89 18 178/82 95 Room Air 11/27/16 21:57 94 Room Air 11/27/16 21:21 94 Room Air 11/27/16 21:21 36.8 96 16 184/90 94 Room Air 11/27/16 21:21 94 Room Air Physical Exam CONSTITUTIONAL/VITAL SIGNS: Reviewed / noted above. GENERAL: Non-toxic in appearance. INTEGUMENTARY: Warm, dry, and [place]. HEAD: Normocephalic. EYES: without scleral icterus or trauma. ENT/OROPHARYNX: clear and moist. LYMPHADENOPATHY/NECK: Is supple without lymphadenopathy or meningismus. RESPIRATORY: Lungs clear and equal. CARDIOVASCULAR: Regular rate and rhythm. GI/ABDOMEN: Soft and nontender. No organomegaly or pulsatile mass. No rebound or guarding. Normal bowel sounds. EXTREMITIES: Bilateral leg edema, left greater than right. Warm and well perfused. BACK: No CVA tenderness. NEUROLOGICAL: Intact without focal deficits. PSYCHIATRIC: normal affect. MUSCULOSKELETAL: Normally developed with good muscle tone. Medical Decision & Procedures ER Provider Diagnostic Interpretation: Radiology results as stated below per my review and radiologist interpretation: CHEST ONE VIEW PORTABLE CLINICAL HISTORY: cp dyspnea COMPARISON STUDY: 10/26/2016 FINDINGS: Mild cardiomegaly. Lungs are clear. Diaphragms smooth. IMPRESSION: Mild cardiomegaly. Electronically signed by: [place] M.D. 11/27/2016 10:17 PM Venous Doppler left leg LEFT VENOUS DOPP LOWER EXT UNILAT CLINICAL HISTORY: r/o dv pain. Edema. TECHNIQUE: Venous Doppler COMPARISON STUDY: 10/26/2016 FINDINGS: Normal study IMPRESSION: Normal study Electronically signed by: [place] M.D. 11/27/2016 10:51 PM Laboratory Results 11/27/16 21:10 11/27/16 21:10 Test 11/27/16 21:10 11/27/16 21:57 Red Blood Count 4.28 M/uL (4.2-5.4) Mean Corpuscular Volume 96.7 fL (80-100) Mean Corpuscular Hemoglobin 31.1 pg (25-34) Mean Corpuscular Hemoglobin Concent 32.1 g/dl (32-36) RDW Standard Deviation 47.3 fL (36.4-46.3) RDW Coefficient of Variation 13.4 % (11.5-14.5) Mean Platelet Volume 12.0 fL (7.4-10.4) Prothrombin Time 10.7 SECONDS (9.0-12.0) Prothromb Time International Ratio 1.0 (0.9-1.1) Activated Partial Thromboplast Time 33.5 SECONDS (21.0-31.0) Partial Thromboplastin Ratio 1.3 Anion Gap 8.0 mmol/L (3-11) Est Creatinine Clear Calc Drug Dose 45.1 ml/min Estimated GFR () 75.0 Estimated GFR (Non- 64.7 BUN/Creatinine Ratio 16.1 (10-20) Calcium Level 9.2 mg/dl (8.5-10.1) Total Bilirubin 0.7 mg/dl (0.2-1) Aspartate Amino Transf (AST/SGOT) 24 U/L (15-37) Alanine Aminotransferase (ALT/SGPT) 18 U/L (12-78) Alkaline Phosphatase 82 U/L (45-117) Total Creatine Kinase 84 U/L (26-192) Creatine Kinase MB 3.0 ng/ml (0.5-3.6) Creatine Kinase MB Ratio 3.6 (0-3.0) Total Protein 6.9 gm/dl (6.4-8.2) Albumin 3.6 gm/dl (3.4-5.0) Globulin 3.3 gm/dl (2.5-4.0) Albumin/Globulin Ratio 1.1 (0.9-2) Lyme Disease IgM Antibody NEG (NEG) Bedside Troponin I 0.010 ng/ml (0-0.045) Laboratory results as stated above per my review. Medications Administered Medications (Trade) Dose Ordered Sig/Blayne Route Start Time Stop Time Status Last Admin Dose Admin Sodium Chloride (Nss 500ml) 500 ml @ 250 mls/hr Q2H STAT IV 11/27/16 21:56 11/27/16 23:55 DC 11/27/16 21:56 250 MLS/HR ECG Indication: chest pain Rate (beats per minute): 96 Rhythm: sinus rhythm Findings: PVC, other (no acute injury) ED Course 2144: Previous medical records were reviewed. The patient was evaluated in room B2. A complete history and physical examination was performed. 2155: Ordered Sodium Chloride 500 ml @ 250 mls/hr IV. 2331: On reevaluation, the patient is doing well. I discussed the results and findings with the patient and her daughter. They verbalized agreement of the treatment plan. The patient was discharged home. Medical Decision the differential was considered includes acute myocardial infarction, acute coronary syndrome, myocarditis, pericarditis, pericardial effusions /tamponade, esophageal perforation, thoracic aortic dissection, pulmonary embolism, pneumonia, pneumothorax, pancreatitis, shingles, acute cholecystitis, perforated abdominal viscus. This is an 81-year-old female who presents to the ED with a chief complaint of chest pain and shortness of breath. She also has a left lower extremity that is more swollen than the right. Patient does not actually complain of chest pain or shortness of breath. The daughter presents with the patient states the patient has dementia and she was complaining of this earlier. The daughters also was concerned of the patient possibly having Lyme's disease. She states that she lives in the [facility] and was concerned about this. The patient has some baseline dementia. She is somewhat of a poor historian. Her exam was relatively unremarkable with exception of bilateral lower extremity edema left greater than right. It is unclear if this is chronic. The patient states that it is not. The patient's daughter states that she is trying to get her placed in a assisted living home or residential in [place]. She is hoping that the patient can be admitted to the hospital and wanted me to dig deep to find a reason. Ultrasound left leg was negative for DVT. Chest x-ray is negative for acute disease. CBC and complete metabolic panel normal. Troponin was negative. Lyme test was negative. The patient was hydrated with some IV fluids. She is felt to be stable for discharge and outpatient follow-up. Impression Primary Impression: Substernal discomfort Additional Impression: Leg edema, left Scribe Attestation The scribe's documentation has been prepared under my direction and personally reviewed by me in its entirety. I confirm that the note above accurately reflects all work, treatment, procedures, and medical decision making performed by me. Departure Information Dispostion Home / Self-Care Referrals No Doctor, Assigned (PCP) Forms HOME CARE DOCUMENTATION FORM, IMPORTANT VISIT INFORMATION Patient Instructions My [facility] Additional Instructions Follow-up with your doctor for further care and evaluation in 1-6 days. Return to the emergency department for worsening or new symptoms or any concerns. You have been examined and treated today on an emergency basis only. This is not a substitute for, or an effort to provide, complete comprehensive medical care. It is impossible to recognize and treat all injuries or illnesses in a single emergency department visit. It is therefore important that you follow up closely with your doctor. Call as soon as possible for an appointment. Problem Qualifiers
[2016-11-28 00:08] VITALS: BP 175/86; PULSE 81; O2SAT 98
== END 2016-11-28 00:08 | disposition home or self-care (01) ==
LOC: EDBD 21:06 → C.EDB 21:07
DX: R07.2 Precordial pain (principal); R60.0 Localized edema; G30.9 Alzheimer's disease, unspecified; F02.80 Dementia in other diseases classified elsewhere, unspecified severity, without behavioral disturbance, psychotic disturbance, mood disturbance, and anxiety; N39.0 Urinary tract infection, site not specified; M19.90 Unspecified osteoarthritis, unspecified site; Z79.01 Long term (current) use of anticoagulants; Z79.82 Long term (current) use of aspirin; Z79.899 Other long term (current) drug therapy